=== PATIENT | male | born 1965 | race Caucasian/White ===

== ENCOUNTER 2021-04-26 09:36 | Day surgery (SDC) | payer OTHER ==
[2021-04-24 14:30] VITALS: BMI 21.2
[~2021-04-26 09:36] MED LIST: LACTATED RINGERS 1,000 ML IV SCH; LIDOCAINE 1% (10MG/ML) FOR IV START INTRADERMA PRN
[2021-04-26 10:11] VITALS: TEMP 98.4
[2021-04-26] MEDS ORDERED: PROPOFOL 10 MG/ML 20 ML VIAL IV ONE (10:58)
[2021-04-26] MEDS ORDERED: GLUCAGON 1 MG/ML VIAL ONE (10:58)
--- NOTE | 2021-04-26 11:28 | P.GSHP ---
History of Present Illness H&P Date: 04/26/21 Chief Complaint: Screening colonoscopy [employer] 55-year-old male presents today for screening colonoscopy patient denies any significant GI complaints Past Medical History Past Medical History: COPD, Hyperlipidemia Additional Past Medical History / Comment(s): CHEST PAIN- NEGATIVE HEART CATH JANUARY 2021 History of Any Multi-Drug Resistant Organisms: None Reported Past Surgical History: Heart Catheterization, Tonsillectomy Past Anesthesia/Blood Transfusion Reactions: No Reported Reaction Smoking Status: Current every day smoker - Past Family History Mother Family Medical History: No Reported History Medications and Allergies Home Medications Medication Instructions Recorded Confirmed Type Aspirin 81 mg PO DAILY 04/24/21 04/26/21 History lisinopriL [Zestril] 2.5 mg PO DAILY 04/24/21 04/26/21 History Atorvastatin [Lipitor] 40 mg PO HS 04/26/21 04/26/21 History Allergies Allergy/AdvReac Type Severity Reaction Status Date / Time No Known Allergies Allergy Verified 04/24/21 14:02 Surgical - Exam Vital Signs Temp Pulse Resp BP Pulse Ox 98.4 F 81 16 130/79 97 04/26/21 10:09 04/26/21 10:09 04/26/21 10:09 04/26/21 10:09 04/26/21 10:09 - General well developed, well nourished, no distress - Eyes PERRL - ENT normal pinna - Neck no masses - Respiratory normal expansion - Cardiovascular Rhythm: regular - Abdomen Abdomen: soft, non tender Assessment and Plan Assessment: We'll perform screening colonoscopy
--- NOTE | 2021-04-26 11:30 | P.OP ---
Date of Procedure: 04/26/21 Preoperative Diagnosis: Screening colonoscopy Postoperative Diagnosis: Multiple colonic polyps Diverticulosis Procedure(s) Performed: colonoscopy Anesthesia: MAC Surgeon: José Miguel Schumacher Pathology: other (Rectal polyp, sigmoid colon polyp, left colon polyp) Condition: stable Disposition: PACU Description of Procedure: The patient's placed on the endoscopy table in the lateral position. He received IV sedation. Digital rectal exam was performed which revealed no abnormalities. Flexible colonoscope was then placed patient anus and passed throughout in the cecum there was a polyp seen was removed the snare. The polyp could not be retrieved. Scope was withdrawn and remainder the ascending colon appeared normal area of the transverse colon appeared normal. In the descending and sigmoid colon there is moderate diverticulosis. In the left colon there is another polyp seen this is removed with the cold forcep and snare. In the sigmoid colon there was diverticular changes. Another polyp was removed with the snare. And then in the rectum another polyp was removed with snare. Patient top she will was sent to recovery room stable condition.
[2021-04-26 11:45] VITALS: BP 132/85; PULSE 63; RESP 12
== END 2021-04-26 12:00 | disposition home or self-care (01) ==
LOC: ORWHC2ENDO 09:36
PROVIDERS: ATTEND Surgery
DX: Z12.11 Encounter for screening for malignant neoplasm of colon (principal); D12.5 Benign neoplasm of sigmoid colon; D12.3 Benign neoplasm of transverse colon; D12.8 Benign neoplasm of rectum; K57.30 Diverticulosis of large intestine without perforation or abscess without bleeding; J44.9 Chronic obstructive pulmonary disease, unspecified; E78.5 Hyperlipidemia, unspecified; R07.9 Chest pain, unspecified; F17.200 Nicotine dependence, unspecified, uncomplicated; I10 Essential (primary) hypertension; Z90.89 Acquired absence of other organs; Z98.890 Other specified postprocedural states; Z79.82 Long term (current) use of aspirin; Z79.899 Other long term (current) drug therapy
CPT/HCPCS: 88305; 45385; J1610; J2704